=== PATIENT | female | born 1975 ===

== ENCOUNTER 2017-04-07 09:28 | Emergency (ER) | payer OTHER ==
--- NOTE | 2017-04-07 10:14 | C.PDOC ---
History Of Present Illness 41yo female with no past medical history, presents to ED for evaluation of lower back pain, present since yesterday. Patient reports she had some similar instances in the past but this was the worst episode. Additionally states she was feeling fine 3 days ago but yesterday, she was at work and was moving objects and bending over frequently, which worsened her pain. She currently reports her pain also radiates to her bilateral legs. She reports taking Tylenol yesterday and this morning with no relief. No other medical complaints. Time Seen by Provider: 04/07/17 10:10 Chief Complaint (Nursing): Back Pain History Per: Patient History/Exam Limitations: no limitations Onset/Duration Of Symptoms: Days Current Symptoms Are (Timing): Still Present Quality Of Discomfort: "Pain" Severity: Moderate Previous Symptoms: Back Pain Associated Symptoms: None Exacerbating Factor(s): Movement Past Medical History Reviewed: Historical Data, Nursing Documentation, Vital Signs Vital Signs: Last Vital Signs Temp 98.7 F 04/07/17 11:22 Pulse 69 04/07/17 11:22 Resp 20 04/07/17 11:22 BP 102/69 04/07/17 11:22 Pulse Ox 98 04/07/17 13:29 - Medical History PMH: No Chronic Diseases Surgical History: No Surg Hx Family History: States: No Known Family Hx, Unknown Family Hx - Social History Hx Tobacco Use: No Hx Alcohol Use: No Hx Substance Use: No - Immunization History Hx Tetanus Toxoid Vaccination: No Hx Influenza Vaccination: No Hx Pneumococcal Vaccination: No Review Of Systems Musculoskeletal: Positive for: Back Pain (lower back pain), Leg Pain (bilateral legs, radiating from lower back) Neurological: Negative for: Weakness, Numbness Physical Exam - Physical Exam Appears: Non-toxic, Other (uncomfortable) Skin: Normal Color Back: Normal Inspection, No Vertebral Tenderness, No Muscle Spasm, No Paraspinal Tenderness Extremity: Normal ROM (normal ROM but with discomfort), No Tenderness, No Deformity, No Swelling Neurological/Psych: Oriented x3, Normal Cognition, Normal Motor ED Course And Treatment O2 Sat by Pulse Oximetry: 98 (RA) Pulse Ox Interpretation: Normal Progress Note: Patient given Motrin, Valium and Lidoderm patch for pain relief. Medical Decision Making Medical Decision Making: Time: 1326 Patient reports feeling much better and is stable for discharge home. Advised to follow up with PCP in 1-2 days. Disposition Counseled Patient/Family Regarding: Diagnosis, Need For Followup, Rx Given - Disposition Referrals: [facility] [Outside] Disposition: HOME/ ROUTINE Disposition Time: 13:29 Condition: STABLE Prescriptions: traMADol/Acetaminophen [Ultracet 37.5/325 mg] 1 tab PO TID PRN #12 tab PRN Reason: pain Instructions: Acute Low Back Pain (ED) Forms: Gen Discharge Inst Pashto, [facility] (Pashto), Work Excuse - POA Present On Arrival: None - Clinical Impression Clinical Impression: Low back pain - Scribe Statement The provider has reviewed the documentation as recorded by the Reynaldo Pérez Provider Attestation: All medical record entries made by the Reynaldo were at my direction and personally dictated by me. I have reviewed the chart and agree that the record accurately reflects my personal performance of the history, physical exam, medical decision making, and the department course for this patient. I have also personally directed, reviewed, and agree with the discharge instructions and disposition.
[2017-04-07] MEDS ORDERED: Lidocaine 5% Patch TD STA (10:25)
[2017-04-07] MEDS ORDERED: Lidocaine 5% Patch TD ONE (10:31)
[2017-04-07 13:55] VITALS: BP 102/71; PULSE 62; RESP 18; TEMP 97.7; O2SAT 97
== END 2017-04-07 13:55 | disposition home or self-care (01) ==
LOC: C.ER 09:28
DX: M54.5 Low back pain (principal)